=== PATIENT | male | born 1935 | race Caucasian/White ===

== ENCOUNTER 2017-04-04 14:18 | Inpatient (IN) | payer MEDICARE, MEDICAID ==
[2017-04-04] MEDS ORDERED: Aspirin Low Dose CHEW TAB* 81 MG PO ONE (14:48)
[2017-04-04 15:39] LABS: Hematocrit 37 % (42-52); Hemoglobin 12.5 g/dl (14.0-18.0); Mean Corpuscular HGB Conc 34 g/dl (31-36); Mean Corpuscular Hemoglobin 30 pg (27-31); Mean Corpuscular Volume 88 fL (80-94); Mean Platelet Volume 7 um3 (7.4-10.4); Red Blood Count 4.22 10^6/ul (4.0-5.4); Red Cell Distribution Width 15 % (10.5-15); White Blood Count 7.3 10^3/ul (3.5-10.8)
[2017-04-04 15:56] LABS: Albumin 3.7 g/dL (3.2-5.2); BUN/Creatinine Ratio 16.2 (8-20); Calcium 8.9 mg/dL (8.6-10.3); EGFR African American 64.4 (>60); Globulin 3.1 g/dL (2-4); Potassium 4.3 mmol/L (3.5-5.0); Total Bilirubin 0.3 mg/dL (0.2-1.0); Total Protein 6.8 g/dL (6.4-8.9)
[2017-04-04 15:57] LABS: Troponin I 0.01 ng/mL (<0.04)
[2017-04-04 16:38] LABS: TSH (Thyroid Stimulating Horm) 3.25 mcIU/mL (0.34-5.60)
[2017-04-04 16:45] LABS: Free T4 0.79 ng/dL (0.61-1.12)
[2017-04-04] MEDS ORDERED: Acetaminophen TAB* 325 MG PO PRN (16:58)
[2017-04-04] MEDS ORDERED: diPHENhydraMINE IV* 50 MG in NS 0.9% 50 ML* 50 ML IVPB ONE (17:34)
[2017-04-04] MEDS ORDERED: diPHENhydraMINE IV* 50 MG/ML 1 ml VIAL (BENADRYL) ONE (18:01)
[2017-04-04] MEDS ORDERED: Haloperidol INJ IV/IM* 5 MG/ML AMP IV SLOW PU ONE ×2 (20:02)
--- NOTE | 2017-04-04 23:11 | ED ---
Amandeep Mary Alok, scribed for Tye Riley MD on 04/04/17 at 1611 . Palpitations / Dysrhythmia - HPI Summary HPI Summary: 81M presents to the ED for bradycardia. Pt denies dizziness or CP. PMHx includes dementia and HTN. [facility] and was recently taken off his propranolol until yesterday. - History of Current Complaint Chief Complaint: EDDysrhythmPalp Time Seen by Provider: 04/04/17 14:49 Hx Obtained From: Patient, Medical Records Onset/Duration: Lasting Hours, Still Present Timing: Constant Severity Initially: Moderate Severity Currently: Moderate Character: Slow Associated Signs & Symptoms: Negative - Allergy/Home Medications Allergies/Adverse Reactions: Allergies Allergy/AdvReac Type Severity Reaction Status Date / Time No Known Allergies Allergy Verified 08/19/15 14:29 Home Medications: Home Medications Acetaminophen [Acetaminophen Extra Stren] 1,000 mg PO TID PRN 04/04/17 [History Confirmed 04/04/17] Cholecalciferol TAB* [Vitamin D TAB*] 1,000 unit PO DAILY 04/04/17 [History Confirmed 04/04/17] Cholecalciferol [Vitamin D3] 50,000 unit PO MONTHLY 04/04/17 [History Confirmed 04/04/17] Citalopram TAB* [CeleXA TAB*] 10 mg PO QAM 04/04/17 [History Confirmed 04/04/17] Gabapentin CAP(*) [Neurontin 400 mg CAP(*)] 400 mg PO BID 04/04/17 [History Confirmed 04/04/17] Primidone TAB(*) [Mysoline TAB(*)] 100 mg PO 1600 04/04/17 [History Confirmed ] Propranolol TAB* [Inderal TAB*] 40 mg PO BID 04/04/17 [History Confirmed ] PMH/Surg Hx/FS Hx/Imm Hx Cardiovascular History: Reports: Hx Hypertension Infectious Disease History: Unable to Obtain/Confirm Infectious Disease History: Denies: Traveled Outside the [place] in Last 30 Days - Family History Known Family History: Positive: Hypertension - Social History Occupation: Retired Lives: [facility] Alcohol Use: None Hx Substance Use: No Substance Use Type: Reports: None Hx Tobacco Use: No Smoking Status (MU): Never Smoked Tobacco Review of Systems Negative: Fever, Chills Negative: Erythema Negative: Sore Throat Negative: Chest Pain Negative: Shortness Of Breath, Cough Negative: Abdominal Pain, Vomiting, Nausea Negative: dysuria, hematuria Negative: Myalgia, Edema Negative: Rash Neurological: Other - Negative: Dizziness All Other Systems Reviewed And Are Negative: Yes Physical Exam - Summary Physical Exam Summary: Constitutional: Well-developed, Well-nourished, Alert. (-) Distressed Skin: Warm, Dry HENT: Normocephalic; Atraumatic Eyes: Conjunctiva normal Neck: Musculoskeletal ROM normal neck. (-) JVD, (-) Stridor, (-) Tracheal deviation Cardio: Rhythm regular, rate normal, Heart sounds normal; Intact distal pulses; The pedal pulses are 2+ and symmetric. Radial pulses are 2+ and symmetric. (-) Murmur Pulmonary/Chest wall: Effort normal. (-) Respiratory distress, (-) Wheezes, (-) Rales Abd: Soft, (-) Tenderness, (-) Distension, (-) Guarding, (-) Rebound Musculoskeletal: (-) Edema Lymph: (-) Cervical adenopathy Neuro: Alert, Oriented x3 Psych: Mood and affect Normal Triage Information Reviewed: Yes Vital Signs On Initial Exam: Initial Vitals Temp Pulse Resp BP Pulse Ox 98.3 F 37 14 153/55 97 04/04/17 14:39 04/04/17 14:39 04/04/17 14:39 04/04/17 14:39 04/04/17 14:39 Vital Signs Reviewed: Yes Completion Of Physical Exam Limited Due To: Dementia Diagnostics - Vital Signs Vital Signs Temp Pulse Resp BP Pulse Ox 04/04/17 14:39 98.3 F 37 14 153/55 97 - Laboratory Lab Results: Lab Results 04/04/17 04/04/17 Range/Units 15:30 15:30 WBC 7.3 (3.5-10.8) 10^3/ul RBC 4.22 (4.0-5.4) 10^6/ul Hgb 12.5 L (14.0-18.0) g/dl Hct 37 L (42-52) % MCV 88 (80-94) fL MCH 30 (27-31) pg MCHC 34 (31-36) g/dl RDW 15 (10.5-15) % Plt Count 197 (150-450) 10^3/ul MPV 7 L (7.4-10.4) um3 Neut % (Auto) 57.8 (38-83) % Lymph % (Auto) 20.9 L (25-47) % [place] % (Auto) 10.9 H (1-9) % Eos % (Auto) 9.1 H (0-6) % Baso % (Auto) 1.3 (0-2) % Absolute Neuts (auto) 4.2 (1.5-7.7) 10^3/ul Absolute Lymphs (auto) 1.5 (1.0-4.8) 10^3/ul Absolute Monos (auto) 0.8 (0-0.8) 10^3/ul Absolute Eos (auto) 0.7 H (0-0.6) 10^3/ul Absolute Basos (auto) 0.1 (0-0.2) 10^3/ul Absolute Nucleated RBC 0 10^3/ul Nucleated RBC % 0 Sodium 135 (133-145) mmol/L Potassium 4.3 (3.5-5.0) mmol/L Chloride 100 L (101-111) mmol/L Carbon Dioxide 29 (22-32) mmol/L Anion Gap 6 (2-11) mmol/L BUN 22 (6-24) mg/dL Creatinine 1.36 H (0.67-1.17) mg/dL Est GFR ( Amer) 64.4 (>60) Est GFR (Non-Af Amer) 50.0 (>60) BUN/Creatinine Ratio 16.2 (8-20) Glucose 83 (70-100) mg/dL Calcium 8.9 (8.6-10.3) mg/dL Total Bilirubin 0.30 (0.2-1.0) mg/dL AST 12 L (13-39) U/L ALT 7 (7-52) U/L Alkaline Phosphatase 67 (34-104) U/L Troponin I 0.01 (<0.04) ng/mL Total Protein 6.8 (6.4-8.9) g/dL Albumin 3.7 (3.2-5.2) g/dL Globulin 3.1 (2-4) g/dL Albumin/Globulin Ratio 1.2 (1-3) TSH Pending Free T4 Pending Result Diagrams: 04/04/17 15:30 04/04/17 15:30 Lab Statement: Any lab studies that have been ordered have been reviewed, and results considered in the medical decision making process. - EKG 1429 Cardiac Rate: Bradycardia - 38 bpm EKG Rhythm: Sinus Bradycardia EKG Interpretation: Ischemic changes Re-Evaluation - Re-Evaluation First Eval Re-Evaluation Time: 17:34 Change: Unchanged Comment: Patient is getting out of bed and non-cooperative. Administering Benadryl for anesthetic properties. Course/Dx - Course Course Of Treatment: Pt presents asymtomatic hx but is demented. EKG shows ishemic changes. Molst form reviewed. Assessment/Plan: Discussed patient care with Dr. Boswell (Emergency Technician) @ [id number] - Made aware of patient potential admit. Recommends hold on propranolol. - Diagnoses Provider Diagnoses: Drug-induced bradycardia, Medication adverse effect, Myocardial ischemia - Physician Notifications Discussed Care Of Patient With: Lisa Escalante - Will admit pt to [facility] Time Discussed With Above Provider: 16:09 Discharge - Discharge Plan Condition: Stable Disposition: ADMITTED TO [facility] documentation as recorded by the Amandeep louise Alok accurately reflects the service I personally performed and the decisions made by me, Tye Riley MD.
[2017-04-04] MEDS: Gabapentin CAP(*) 400 MG PO SCH (23:14)
[2017-04-04] MEDS: Heparin VIAL(*) 5000 UNITS/ML VIAL (FIVE THOUSAND) SUBCUT SCH (23:16)
--- NOTE | 2017-04-04 23:18 | HP ---
CC: Dr. Meenu Antoine, [facility] * HISTORY AND PHYSICAL: DATE OF ADMISSION: 04/04/17 TIME OF EVALUATION: 4:40 p.m. CHIEF COMPLAINT: "I need my clothes." HISTORY OF PRESENT ILLNESS: Mr. Urbano is an 81-year-old male with a past medical history of dementia, hypertension, anxiety who was sent from [facility] to the emergency room for evaluation of bradycardia. Due to his advanced dementia, the patient cannot provide any meaningful history and information is obtained from his records and from conversation with the ED provider, Dr. Riley. Per report, the patient was taken off propranolol in the past due to bradycardia and that this drug was resumed and he developed bradycardia again. Looking at his MAR, it looks like he has been taking this medication twice a day , but on March 31 and , the morning dose of the medication was held. There is no further documentation at this time and I have called [facility] and requested further records. Although the patient denies chest pain, dizziness, or any other symptoms, the ED provider was concerned because his EKG showed bradycardia with T-wave inversions on the lateral leads, V4, V5, and V6, new when compared to his prior EKG from August 2015 and for that reason, the hospitalist service was consulted. The patient is unable to provide anymore history. PAST MEDICAL HISTORY: 1. Dementia. 2. Hypertension. 3. Anxiety. 4. GERD. 5. Essential tremor. 6. CKD stage 3. MEDICATIONS: 1. Acetaminophen 1000 mg p.o. t.i.d. as needed for pain or fever. 2. Cholecalciferol 50,000 units p.o. monthly. 3. Cholecalciferol 1000 units p.o. daily. 4. Citalopram 10 mg p.o. q.a.m. 5. Donepezil 10 mg p.o. at 1600. 6. Gabapentin 400 mg p.o. b.i.d. 7. Losartan 50 mg p.o. q.a.m. 8. Primidone 50 mg p.o. q.a.m. and 100 mg p.o. at 1600. 9. Propranolol 40 mg p.o. b.i.d. ALLERGIES: No known drug allergies. FAMILY HISTORY: I am unable to obtain from the patient. SOCIAL HISTORY: I am unable to obtain from the patient. He resides at [facility]. There is a MOLST form sent from [facility] that the patient is a full code and surrogate decision maker is his daughter, Angelica Carias, phone number is [phone]. REVIEW OF SYSTEMS: I am unable to obtain from the patient due to his dementia. PHYSICAL EXAMINATION GENERAL: The patient is an elderly, pleasantly confused male, sitting up in the ER stretcher, in no acute distress. VITAL SIGNS: Temperature 98.3, heart rate is 45, respiratory rate is 15, oxygen saturation 95% on room air, blood pressure is 159/64. HEENT: Pupils are equal. Moist mucous membranes. CHEST: Breath sounds present bilaterally with no added sounds. CVS: Normal S1, S2. Regular rate and rhythm. Bradycardic. ABDOMEN: Soft. Bowel sounds are present. EXTREMITIES: Skin is dry, but there is no edema. NEUROLOGIC: He is alert, awake, and oriented x1 to self only. Able to move all 4 extremities and able to ambulate in his room. LABORATORY AND IMAGING DATA: CBC showed WBC of 7.3, hemoglobin of 12.5, hematocrit of 37, platelets of 197 with 67% neutrophils. Chemistries showed a sodium of 135, potassium of 4.3, chloride of 100, bicarb of 29, BUN of 22, creatinine of 1.3, glucose 83, calcium 8.9. Lactic acid is minimally elevated at 2.1 (range 0.5 to 2.0). LFTs are normal. Troponin is 0.01. PFTs are normal. EKG done on 04/04/17 at 1429 showed sinus bradycardia at 38 beats per minute with a right bundle branch block and left anterior fascicular block. T-wave inversions from V4 through V6. On his prior EKG in 2014, he already had right bundle and the left anterior fascicular block and he had some ST depressions in V4 through V6, but the T waves were positive. ASSESSMENT AND PLAN: Mr. Urbano is an 81-year-old male with a past medical history of dementia, hypertension, anxiety, gastroesophageal reflux disease, essential tremor, chronic kidney disease stage 3, who was sent from [facility] for evaluation of asymptomatic bradycardia. 1. Bradycardia: The patient is asymptomatic with no dizziness. He has a good blood pressure and seems to be perfusing well and at his baseline mental status. This is likely secondary to propranolol. His medication will be held and he will be monitored on telemetry. 2. Possible EKG ischemic changes: The patient denies chest pain and his troponin is negative at this time. These EKG changes are "new" when compared to prior EKG of 2015. I doubt this patient has an acute coronary syndrome, but we are going to check serial troponins and monitor on telemetry. 3. Dementia: We will continue donepezil and citalopram and continue supportive care. He will be placed on fall precautions, and he will have a safety monitor as needed as I am concerned he may sundown while in the hospital. 4. Code status is full code. 5. DVT prophylaxis: The patient has a score of 3 on the DVT Prophylaxis Risk Assessment Guide and he will be started on subcutaneous heparin. I called [facility] and have requested more records including his history and physical, but I have not received any records so far at this point. TIME SPENT: Approximately 55 minutes were spent with the patient interview, medical records review, physical examination to complete this admission, more than half of this time was spent [id number] with the patient in coordination of care. [id number]/CPS #: [id number] LAKESHA
[2017-04-05] MEDS: Heparin VIAL(*) 5000 UNITS/ML VIAL (FIVE THOUSAND) SUBCUT SCH ×3 (06:09→21:19)
[2017-04-05] MEDS ORDERED: Primidone TAB(*) 50 MG PO SCH ×3 (09:00→16:00)
--- NOTE | 2017-04-05 09:45 | PN ---
Subjective Date of Service: 04/05/17 Interval History: Mr. Urbano is an 81 yo gentleman who presented to the ED on 04/04 from [facility] with concern for symptomatic bradycardia. Per Cecilia, one of the nurses at [facility], Mr. Urbano is independent with ADLs at baseline and ambulatory. He does have dementia and exhibits confusion, however, he is able to make his needs known and interacts with the other residents with activities like playing cards. Per [facility] staff development educator, Cecilia, the patient was previously started on propranalol a few months ago for severe tremors, which he previously tolerated well. Due to a computer error, the medication fell off the DEC and was restarted on 03/24 once staff realized it had fallen off his medication list. Since then, the staff reports intermittent episodes of bradycardia. He has had some doses held due to low HR. On 04/04, "his HR was noted to be in the 70s-80s" so the patient received his morning propranalol. Later that day, Mr. Urbano reported "not feeling well." Cecilia states he was pale, more confused, unsteady and more weak and sent him to the ED. Here, the patient has been agitated and trying to leave. He is currently in the room with a safety monitor. Patient does not directly answer questions but states "I'm fine." No verbalized complaints. Telemetry: Sinus bradycardia 40s Family History: Unchanged from Admission Social History: Unchanged from Admission Past Medical History: Unchanged from Admission Objective Active Medications: Acetaminophen (Tylenol Tab*) 650 mg PO Q6H PRN PRN Reason: pain/fever Cholecalciferol (Vitamin D Tab*) 1,000 units PO DAILY [facility] Citalopram Hydrobromide (Celexa Tab*) 10 mg PO QAM [facility] Donepezil HCl (Aricept Tab*) 10 mg PO 1600 [facility] Gabapentin (Neurontin Cap(*)) 400 mg PO BID [facility] Last Admin: 04/04/17 23:14 Dose: 400 mg Heparin Sodium (Porcine) (Heparin Vial(*)) 5,000 units SUBCUT Q8HR [facility] Last Admin: 04/05/17 06:09 Dose: 5,000 units Losartan Potassium (Cozaar Tab*) 50 mg PO QAM [facility] Primidone (Mysoline Tab(*)) 100 mg PO 1600 [facility] Primidone (Mysoline Tab(*)) 50 mg PO QAM [facility] Vital Signs 04/04/17 04/04/17 04/04/17 16:12 16:22 18:10 Temperature Pulse Rate 39 Respiratory 14 15 18 Rate Blood Pressure 175/70 159/64 (mmHg) O2 Sat by Pulse 95 Oximetry 04/04/17 04/04/17 04/05/17 18:50 23:14 00:05 Temperature 98.8 F 97.9 F Pulse Rate 40 37 Respiratory 12 16 16 Rate Blood Pressure 155/67 146/61 (mmHg) O2 Sat by Pulse 95 95 Oximetry 04/05/17 04/05/17 04/05/17 01:14 03:25 07:25 Temperature 97.7 F 97.4 F Pulse Rate 34 38 Respiratory 16 16 16 Rate Blood Pressure 164/50 146/59 (mmHg) O2 Sat by Pulse 95 93 Oximetry Oxygen Devices in Use Now: None Appearance: Elderly male, OOB to chair, NAD Ears/Nose/Mouth/Throat: Mucous Membranes Moist Respiratory: Symmetrical Chest Expansion and Respiratory Effort, Clear to Auscultation Cardiovascular: NL Sounds; No Murmurs; No JVD, RRR Abdominal: NL Sounds; No Tenderness; No Distention Extremities: No Edema Neurological: - - Oriented to self Lines/Tubes/Other Access: Clean, Dry and Intact Peripheral IV Result Diagrams: 04/04/17 15:30 04/04/17 15:30 Additional Lab and Data: Lab Results 04/04/17 04/04/17 Range/Units 15:30 15:30 WBC 7.3 (3.5-10.8) 10^3/ul RBC 4.22 (4.0-5.4) 10^6/ul Hgb 12.5 L (14.0-18.0) g/dl Hct 37 L (42-52) % MCV 88 (80-94) fL MCH 30 (27-31) pg MCHC 34 (31-36) g/dl RDW 15 (10.5-15) % Plt Count 197 (150-450) 10^3/ul MPV 7 L (7.4-10.4) um3 Neut % (Auto) 57.8 (38-83) % Lymph % (Auto) 20.9 L (25-47) % [place] % (Auto) 10.9 H (1-9) % Eos % (Auto) 9.1 H (0-6) % Baso % (Auto) 1.3 (0-2) % Absolute Neuts (auto) 4.2 (1.5-7.7) 10^3/ul Absolute Lymphs (auto) 1.5 (1.0-4.8) 10^3/ul Absolute Monos (auto) 0.8 (0-0.8) 10^3/ul Absolute Eos (auto) 0.7 H (0-0.6) 10^3/ul Absolute Basos (auto) 0.1 (0-0.2) 10^3/ul Absolute Nucleated RBC 0 10^3/ul Nucleated RBC % 0 Sodium 135 (133-145) mmol/L Potassium 4.3 (3.5-5.0) mmol/L Chloride 100 L (101-111) mmol/L Carbon Dioxide 29 (22-32) mmol/L Anion Gap 6 (2-11) mmol/L BUN 22 (6-24) mg/dL Creatinine 1.36 H (0.67-1.17) mg/dL Est GFR ( Amer) 64.4 (>60) Est GFR (Non-Af Amer) 50.0 (>60) BUN/Creatinine Ratio 16.2 (8-20) Glucose 83 (70-100) mg/dL Calcium 8.9 (8.6-10.3) mg/dL Total Bilirubin 0.30 (0.2-1.0) mg/dL AST 12 L (13-39) U/L ALT 7 (7-52) U/L Alkaline Phosphatase 67 (34-104) U/L Troponin I 0.01 (<0.04) ng/mL Total Protein 6.8 (6.4-8.9) g/dL Albumin 3.7 (3.2-5.2) g/dL Globulin 3.1 (2-4) g/dL Albumin/Globulin Ratio 1.2 (1-3) TSH Pending Free T4 Pending Microbiology and Other Data: Microbiology 04/05/17 06:15 Nasal Screen MRSA (PCR)(ISELA) - Final Nasal Mrsa Negative Assess/Plan/Problems-Billing Assessment: Mr. Urbano is an 81 yo male with a PMH of tremors, dementia, HTN, anxiety, GERD, and stage 3 CKD who presented to the ED on 6/20 with concern for symptomatic bradycardia secondary to restarting propranalol. - Patient Problems (1) Bradycardia Code(s): R00.1 - BRADYCARDIA, UNSPECIFIED Comment: Secondary to reinitiation of propranolol for tremors Patient was asymptomatic yesterday but not today HR 30s-40s this AM Continue to monitor (2) Abnormal EKG Code(s): R94.31 - ABNORMAL ELECTROCARDIOGRAM [ECG] [EKG] Comment: Last EKG on record was 2014, so acuity of this is unclear Troponins negative Denies CP or sx concerning of ACS Continue to monitor on telemetry (3) Essential tremor Code(s): G25.0 - ESSENTIAL TREMOR Comment: Discussed in side consult with neurology Increase primidone to 100 mg BID Outpatient neurology follow-up recommended for further eval and tx (4) HTN (hypertension) Code(s): I10 - ESSENTIAL (PRIMARY) HYPERTENSION Comment: SBP 140s Continue losartan. (5) Dementia Code(s): F03.90 - UNSPECIFIED DEMENTIA WITHOUT BEHAVIORAL DISTURBANCE Comment : Continue donepezil. (6) DVT prophylaxis Comment: SQ heparin Status and Disposition: OBV admit. Anticipate dc to [facility] tomorrow.
[2017-04-05] MEDS: Losartan TAB* 25 MG PO SCH (09:59)
[2017-04-05] MEDS: Gabapentin CAP(*) 400 MG PO SCH ×2 (10:00→21:19)
[2017-04-05] MEDS: Cholecalciferol TAB* 1000 UNITS PO SCH (10:00)
[2017-04-05] MEDS: Citalopram TAB* 10 MG PO SCH (10:01)
[2017-04-05] MEDS ORDERED: Donepezil TAB* 5 MG PO SCH (16:00)
[2017-04-06] MEDS: Heparin VIAL(*) 5000 UNITS/ML VIAL (FIVE THOUSAND) SUBCUT SCH (05:14)
--- NOTE | 2017-04-06 05:20 | CONS ---
CC: [facility] Providers; Hospitalist * CARDIOLOGY CONSULTATION: DATE OF CONSULT: 04/05/17 REASON FOR CONSULTATION: Bradycardia. CHIEF COMPLAINT: Total body pain. HISTORY OF PRESENT ILLNESS: Mr. Urbano is an 81-year-old gentleman with significant dementia and therefore, much of the history was provided from [facility] notes. The patient just said he is in a lot of pain and does not really remember why he came in. Notes from [facility] document that the patient has a tremor and had been treated with propranolol in the past. This had been stopped and resumed. The patient became weaker and was noted to be bradycardic and sent in to the ED for evaluation. The patient was found to be bradycardic in the emergency department and was found to have an abnormal EKG with inverted T waves in the lateral leads compared with an EKG of 2015. The patient denied chest pain, but did say he had pain in his legs and then said his arms and all over, again unreliable historian. PAST MEDICAL HISTORY: The patient has a past medical history of a tremor, dementia, hypertension, chronic renal insufficiency stage 3, and reflux. CURRENT MEDICATIONS: Include: 1. Tylenol p.r.n. 2. Vitamin D 1000 units a day. 3. Celexa 10 mg a day. 4. Aricept 10 mg a day. 5. Neurontin 400 mg b.i.d. 6. Subcutaneous heparin. 7. Cozaar 50 mg a day. 8. Primidone tabs 50 mg a day. ALLERGIES: No known drug allergies, but intolerant of BETA-BLOCKERS due to bradycardia. FAMILY HISTORY: Unable to get a family history from the patient. SOCIAL HISTORY: The patient states he used to live in [place]. Based on chart record, he has a daughter, who lives locally. He currently resides at [facility]. REVIEW OF SYSTEMS: Unreliable and also unable to be obtained. PHYSICAL EXAM: The patient is 5 feet 8 inches, weighs 170 pounds with a BMI of 26. Vital Signs: On admission, heart rate 37 to 40, blood pressure 153/55, oxygen saturation 95% to 97%, and he is afebrile. General Appearance: Elderly gentleman, appears well nourished, lying flat, in no acute distress. Psychologically, very vague, clearly has dementia. Neurologically, he also seems hard of hearing, but when he does answer about his past, his speech is articulate, he does not seem to have trouble finding words. He will follow commands and he is walking around the floor without difficulty and with a good gait. Skin: Some shaving scrapes, but warm, dry, and no cyanosis. HEENT: Pupils are equal, round. Mucous membranes moist. Neck: Without thyromegaly or lymphadenopathy appreciated. Respirations: Distant, but clear with no wheezing, rales, or rhonchi. Coronary: S1, S2 regular. Bradycardic. Abdomen: Soft and nontender. Lower Extremities: Were free of edema and warm. DIAGNOSTIC STUDIES/LAB DATA: From 04/04/17, white count 7.3, hemoglobin 12.5, hematocrit 37, platelets 197. Sodium 135, potassium 4.3, chloride 100, bicarb 29, BUN 22, creatinine 1.36, glucose 83. ALT of 7. Troponin 0.01. ESR of 32. Troponin #2 0.01, troponin #3 0.01. TSH of 3.25. Free T4 of 0.79. EKG from 04/05/17 shows sinus bradycardia at 38 beats a minute, QRS axis of -30 with normal AV conduction time. He has a right bundle-branch block and inverted T waves in the precordial leads V3 through V6. When compared with an EKG of 08/21/15, the right bundle-branch block is old and at that time, he had inverted T waves V1 through V4, so the T wave inversions have changed and the bradycardia is new. SUMMARY: Mr. Urbano is an 81-year-old gentleman who presented weak, pale, and bradycardic after initiation of propranolol for tremors. According to the [facility] note, his heart rate was in the 70s to 80s prior to resumption of propranolol. There is no absolute indication for a pacemaker if the propranolol can be held and after discussions with the hospitalist, who talked with [facility], we are going to hold the propranolol for now and try other medications to control the patient's tremor. He is going to follow up with Neurology to look for possible Parkinson's or Parkinson-like syndromes as an outpatient. The T-wave abnormalities are noted, although they could represent ischemia, his normal serial troponins are reassuring. They could also represent a cardiomyopathy or changes related to GI or PARQUETRY LAYER abnormalities. Options for workup would include a non urgent stress test. I would avoid a chemical stress test until the bradycardia is resolved as this could lead to worsening of the bradycardia that would be difficult to reverse. As the patient is a good walker, there would certainly be an option for a treadmill nuclear stress test if he is able to follow commands with his dementia. With the patient's T-wave inversions, it is felt appropriate clinically and taking the patient's dementia and long-term goals into effect, an in or outpatient echo could be considered as well, but again I would not perform testing that would not lead to changes in management. With the patient's dementia, I would not proceed with testing that would not exchange engineer. Although we are not recommending a pacemaker at this point in time, the patient appears to have bradycardia related to medications and has had no syncopal episodes, we can reevaluate based on the patient's clinical course and medication needs. I am happy to follow up with him as an outpatient. [id number]/CPS #: [id number] LAKESHA
--- NOTE | 2017-04-06 08:51 | DCNOTE ---
Subjective Date of Service: 04/06/17 Interval History: Patient seen and examined at bedside. He is very restless and alternates between laying in bed, sitting in the hallway, and wandering through the unit. He denies chest pain, SOB, or any acute complaint. He states, "I've got to get out of here." Patient's condition discussed with daughter. She ultimately wants him to get back home as soon as possible. We discussed the possibility of pursuing a stress test or echo here in the hospital, though I did explain that this may not necessarily result in any changes to management. We also discussed that this could be done as an outpatient, which she would prefer. No other acute concerns. Telemetry: SR 64-70 Family History: Unchanged from Admission Social History: Unchanged from Admission Past Medical History: Unchanged from Admission Objective Active Medications: Acetaminophen (Tylenol Tab*) 650 mg PO Q6H PRN PRN Reason: pain/fever Cholecalciferol (Vitamin D Tab*) 1,000 units PO DAILY [facility] Last Admin: 04/05/17 10:00 Dose: 1,000 units Citalopram Hydrobromide (Celexa Tab*) 10 mg PO QAM [facility] Last Admin: 04/05/17 10:01 Dose: 10 mg Donepezil HCl (Aricept Tab*) 10 mg PO 1600 [facility] Last Admin: 04/05/17 15:49 Dose: 10 mg Gabapentin (Neurontin Cap(*)) 400 mg PO BID [facility] Last Admin: 04/05/17 21:19 Dose: 400 mg Heparin Sodium (Porcine) (Heparin Vial(*)) 5,000 units SUBCUT Q8HR [facility] Last Admin: 04/06/17 05:14 Dose: Not Given Losartan Potassium (Cozaar Tab*) 50 mg PO QAM [facility] Last Admin: 04/05/17 09:59 Dose: 50 mg Primidone (Mysoline Tab(*)) 100 mg PO 1600 [facility] Last Admin: 04/05/17 15:49 Dose: 100 mg Primidone (Mysoline Tab(*)) 100 mg PO QAM [facility] Vital Signs 04/05/17 04/05/17 04/05/17 10:00 10:05 12:00 Temperature Pulse Rate 42 Respiratory 16 16 Rate Blood Pressure (mmHg) O2 Sat by Pulse Oximetry 04/05/17 04/05/17 04/05/17 15:37 19:39 20:00 Temperature 98.4 F 97.2 F Pulse Rate 49 49 Respiratory 18 18 18 Rate Blood Pressure 131/63 155/68 (mmHg) O2 Sat by Pulse 97 96 Oximetry 04/05/17 04/05/17 04/05/17 21:19 23:18 23:38 Temperature 98.2 F Pulse Rate 52 Respiratory 16 14 18 Rate Blood Pressure 177/68 (mmHg) O2 Sat by Pulse 94 Oximetry 04/06/17 02:41 Temperature 98.2 F Pulse Rate 47 Respiratory 18 Rate Blood Pressure 160/62 (mmHg) O2 Sat by Pulse 93 Oximetry Oxygen Devices in Use Now: None Appearance: Elderly male, restless, pleasantly confused, NAD Ears/Nose/Mouth/Throat: Mucous Membranes Moist Neck: NL Appearance and Movements; NL JVP Respiratory: Symmetrical Chest Expansion and Respiratory Effort, Clear to Auscultation Cardiovascular: NL Sounds; No Murmurs; No JVD, RRR Abdominal: NL Sounds; No Tenderness; No Distention Extremities: No Edema Neurological: - - Alert, oriented to self Result Diagrams: 04/04/17 15:30 04/04/17 15:30 Additional Lab and Data: Lab Results 04/04/17 04/04/17 Range/Units 15:30 15:30 WBC 7.3 (3.5-10.8) 10^3/ul RBC 4.22 (4.0-5.4) 10^6/ul Hgb 12.5 L (14.0-18.0) g/dl Hct 37 L (42-52) % MCV 88 (80-94) fL MCH 30 (27-31) pg MCHC 34 (31-36) g/dl RDW 15 (10.5-15) % Plt Count 197 (150-450) 10^3/ul MPV 7 L (7.4-10.4) um3 Neut % (Auto) 57.8 (38-83) % Lymph % (Auto) 20.9 L (25-47) % Riley % (Auto) 10.9 H (1-9) % Eos % (Auto) 9.1 H (0-6) % Baso % (Auto) 1.3 (0-2) % Absolute Neuts (auto) 4.2 (1.5-7.7) 10^3/ul Absolute Lymphs (auto) 1.5 (1.0-4.8) 10^3/ul Absolute Monos (auto) 0.8 (0-0.8) 10^3/ul Absolute Eos (auto) 0.7 H (0-0.6) 10^3/ul Absolute Basos (auto) 0.1 (0-0.2) 10^3/ul Absolute Nucleated RBC 0 10^3/ul Nucleated RBC % 0 Sodium 135 (133-145) mmol/L Potassium 4.3 (3.5-5.0) mmol/L Chloride 100 L (101-111) mmol/L Carbon Dioxide 29 (22-32) mmol/L Anion Gap 6 (2-11) mmol/L BUN 22 (6-24) mg/dL Creatinine 1.36 H (0.67-1.17) mg/dL Est GFR ( Amer) 64.4 (>60) Est GFR (Non-Af Amer) 50.0 (>60) BUN/Creatinine Ratio 16.2 (8-20) Glucose 83 (70-100) mg/dL Calcium 8.9 (8.6-10.3) mg/dL Total Bilirubin 0.30 (0.2-1.0) mg/dL AST 12 L (13-39) U/L ALT 7 (7-52) U/L Alkaline Phosphatase 67 (34-104) U/L Troponin I 0.01 (<0.04) ng/mL Total Protein 6.8 (6.4-8.9) g/dL Albumin 3.7 (3.2-5.2) g/dL Globulin 3.1 (2-4) g/dL Albumin/Globulin Ratio 1.2 (1-3) TSH Pending Free T4 Pending Microbiology and Other Data: Microbiology 04/05/17 06:15 Nasal Screen MRSA (PCR)(ISELA) - Final Nasal Mrsa Negative Assess/Plan/Problems-Billing Assessment: Mr. Urbano is an 81 yo male with a PMH of tremors, dementia, HTN, anxiety, GERD, and stage 3 CKD who presented to the ED on 04/04 with concern for symptomatic bradycardia secondary to restarting propranalol. - Patient Problems (1) Bradycardia Code(s): R00.1 - BRADYCARDIA, UNSPECIFIED Comment: Secondary to reinitiation of propranolol for tremors Resolved, now 60s-70s Outpatient cardiology follow-up (2) Abnormal EKG Code(s): R94.31 - ABNORMAL ELECTROCARDIOGRAM [ECG] [EKG] Comment: T-wave inversions seen in V4, V5, V6 Last EKG on record was 2014, so acuity of this is unclear Troponins negative Denies CP or sx concerning of ACS Daughter declined pursuing echo or stress test, as patient is very unhappy and more confused here. Outpatient cardiology follow-up, family to discuss necessity of ischemic workup at that time. (3) Essential tremor Code(s): G25.0 - ESSENTIAL TREMOR Comment: Question if this is PD Discussed in side consult with neurology Increase primidone to 100 mg BID with cessation of propranalol. Outpatient neurology follow-up recommended for further eval and tx (4) HTN (hypertension) Code(s): I10 - ESSENTIAL (PRIMARY) HYPERTENSION Comment: Borderline control, but suspect some aspect of agitation. Continue losartan. (5) Dementia Code(s): F03.90 - UNSPECIFIED DEMENTIA WITHOUT BEHAVIORAL DISTURBANCE Comment : Continue donepezil. (6) DVT prophylaxis Comment: SQ heparin Status and Disposition: D/c to home.
[2017-04-06] MEDS: Cholecalciferol TAB* 1000 UNITS PO SCH (09:32)
[2017-04-06] MEDS: Losartan TAB* 25 MG PO SCH (09:32)
[2017-04-06] MEDS: Citalopram TAB* 10 MG PO SCH (09:32)
[2017-04-06] MEDS: Gabapentin CAP(*) 400 MG PO SCH (09:32)
--- NOTE | 2017-04-06 11:03 | DS ---
DATE OF ADMISSION: 04/04/2017. DATE OF DISCHARGE: 04/06/2017. PROVIDER: Silver Garcia NP. ATTENDING PHYSICIAN: Dr. Michael Moran* (as dictated by Silver Garcia NP). CONSULTING PHYSICIAN: Dr. Sherrell Walls. PRIMARY CARE PHYSICIAN: Dr. Meenu Antoine at [facility] and Rosy Lyles NP at [facility]. PRIMARY DISCHARGE DIAGNOSES: 1. Bradycardia. 2. EKG changes with T-wave inversions in V4, V5 and V6, unknown chronicity. 3. Essential tremor. SECONDARY DISCHARGE DIAGNOSES: 1. Dementia. 2. Hypertension. 3. Anxiety. 4. GERD. 5. Chronic kidney disease, stage 3. MEDICATIONS AT DISCHARGE: 1. Tylenol 1000 mg t.i.d. prn. 2. Gabapentin 400 mg b.i.d. 3. Primidone 100 mg b.i.d. 4. Donepezil 10 mg daily. 5. Cholecalciferol 1000 units daily and 50,000 units monthly. 6. Losartan 50 mg q.a.m. 7. Citalopram 10 mg q.a.m. The patient should discontinue previously prescribed Propranolol. HOSPITAL COURSE OF STAY: For full details, please refer to the history and physical provided by Dr. Rawls. In summary, Mr. Urbano is an 81-year-old gentleman who was sent over from [facility] for evaluation of bradycardia. Per discussion with one of the nursing staff, Cecilia, the patient had previously been prescribed Propranolol for treatment of essential tremors. The medication somehow accidentally fell off his MAR via the computer system. The patient was noticed to have an increase in tremors and complaints of pain and this was restarted. Since then, the staff reported and documented intermittent episode of bradycardia with some doses being held. The medication was originally restarted on 03/24/2017. On April 04, the patient's heart rate that morning was noted to be in the 70s and 80s by the staff, so he did receive his morning dose of Propranolol. Later that day, Mr. Urbano was reporting "not feeling well." The nursing staff notes that he was pale, more confused, unsteady and more weak and he was sent to the ER. Here in the hospital, the patient has been without complaint. He has been very ambulatory and at times agitated with his new environment. For the most part, he is pretty pleasant, although he did not want to be on the clinical research monitor and frequently took it off. He was noted to be, however, bradycardic overnight and into the following day in the 30s and 40s. His heart rates did eventually trend up and at the time of discharge was noted to be in the 60s and 70s. He has continuously denied any chest pain, although at some point he did report that he had pain all over. His complaints were inconsistent, but again there is concern that he does have visible tremor and perhaps concern for Parkinson's disease with his tremoring and at times hand gripping and mika. I did discuss the patient with neurology here, who referred patient for outpatient Parkinson's evaluation and management, but she did recommend that the patient increase his Primidone. As the patient is markedly bradycardic with Propranolol , this was discontinued and it was agreed that this was not necessary to continue to fully for the treatment of tremors. We did also appreciate a consult from the disk sharpener, Dr. Walls, for the bradycardia as well as new T-wave inversions seen on his EKG. These inverted T - waves are new compared with the EKG from 2015. While these T-waves could representing ischemia, the patient did have a normal serial troponins. They could also represent a cardiomyopathy or changes related to GI or AVIATION ELECTRICAL TECHNICIAN abnormalities. It was felt there were no indications for a pacemaker at this time as the Propranolol can be held. The patient's heart rate has improved and resolved back to normal. The patient could undergo a stress test, either chemical or exercise for further evaluation and ischemic work-up. However, being as the patient is just resolving from his bradycardia, we held off on a chemical stress test and the patient is currently not able to follow directions for an exercise stress test here in the hospital. I did also discuss these findings and recommendations with the patient's daughter, Ms. Angelica Pantoja, who opted to hold off on this testing right now. She would like her father to be out of the hospital as it does increase his agitation, and he is very unhappy here. I did tell her that she would be able to follow-up with a disk sharpener and perhaps discuss the benefits of this in the future and decide if they would like to pursue a stress test and echocardiogram. We also did discuss that these tests may not lead to any changes in his medical management. She is understanding of this and ultimately has said and opted against having any further testing for her father and agrees with an outpatient cardiology follow- up to see if any further testing would be beneficial. At the time of discharge, Mr. Urbano is ambulatory on the unit. He denies any pain. He is very eager to go home. His heart rate is noted on telemetry to be sinus rhythm in the 60s and 70s. CONCERNS AT DISCHARGE: Mr. Urbano should be discharged to [facility] on 04/06/2017 and should follow-up with the facility provider, either Dr. Antoine or Rosy Lyles NP. OUTPATIENT FOLLOW-UP CONCERNS: Mr. Urbano should discontinue his Propranolol. His Primidone has been increased. He needs further evaluation of his tremors and potentially a Parkinsonian work-up which will be done via Neurology. The first available appointment for the patient via [facility] Neu[facility] is on June [address] Dalal. He is to follow-up with Cardiology as well. An appointment has been made for May 02. DIET: Heart-healthy diet. ACTIVITY: As tolerated. CONDITION: Stable. DISPOSITION: To [facility]. TIME SPENT: Time spent on this discharge was approximately 45 minutes. Again, this is only a brief summary of the patient's hospital course of stay. For full details, please refer to the full medical record. If you have any further questions or need further assistance, please feel free to contact me at [phone]. SILVER GARCIA NP CC: Dr. Meenu Antoine, [facility]; Rosy Lyles NP* [id number]/CPS #: [id number] [facility]
[2017-04-06 11:55] VITALS: BP 136/63
[2017-04-06 15:31] LABS: Creatine Kinase 132 U/L (52 - 336)
== END 2017-04-06 12:00 | DRG 310 ==
LOC: ED 14:18 → MEDTELE 16:09 → OBSVTOIN 04-05 09:00
PROVIDERS: ADMIT Internal Medicine; ATTEND Hospitalist
DX: R00.1 Bradycardia, unspecified (principal); F03.90 Unspecified dementia, unspecified severity, without behavioral disturbance, psychotic disturbance, mood disturbance, and anxiety; N18.3 Chronic kidney disease, stage 3 (moderate); G25.0 Essential tremor; F41.9 Anxiety disorder, unspecified; K21.9 Gastro-esophageal reflux disease without esophagitis; I12.9 Hypertensive chronic kidney disease with stage 1 through stage 4 chronic kidney disease, or unspecified chronic kidney disease; T44.7X5A Adverse effect of beta-adrenoreceptor antagonists, initial encounter; R94.31 Abnormal electrocardiogram [ECG] [EKG]
CPT/HCPCS: 36415; 80053; 82550; 83605; 84439; 84443; 84484; 85025; 85652; 87641; 93005; A9270-GY; G0378; J1200; J1630; J1644

== ENCOUNTER 2018-08-13 02:42 | Emergency (ER) | payer MEDICARE, MEDICAID ==
--- NOTE | 2018-08-13 03:10 | ED ---
Altered Mental Status - HPI Summary HPI Summary: LEVEL 5 CAVEAT: HPI LIMITED DUE TO PT CONDITION, DEMENTIA An 82 y/o M with dementia presents to ED from [facility] for elevated BP onset FINGERNAIL SCULPTURER. Pt was sent here from [facility] because he was hypertensive and more confused than usual. Pt denies pain, HUYNH at bedside. He feels cold. Pt states he does not know where he is or why he is here. Manual blood pressure at bedside was 170/90. - History Of Current Complaint Chief Complaint: EDAltMentalStatus Stated Complaint: HIGH BP/CONFUSION Time Seen by Provider: 08/13/18 03:08 Hx Obtained From: Patient Hx From Patient Unobtainable Due To: Dementia Associated Signs And Symptoms: Negative: Headache - Allergies/Home Medications Allergies/Adverse Reactions: Allergies Allergy/AdvReac Type Severity Reaction Status Date / Time No Known Allergies Allergy Verified 08/19/15 14:29 PMH/Surg Hx/FS Hx/Imm Hx Previously Healthy: No Cardiovascular History: Reports: Hx Hypertension GI History: Reports: Hx Gastroesophageal Reflux Disease History: Reports: Other Problems/Disorders - Chronic kidney disease stage 3 Sensory History: Denies: Hx Contacts or Glasses, Hx Hearing Aid Opthamlomology History: Denies: Hx Contacts or Glasses Neurological History: Reports: Hx Dementia, Other Neuro Impairments/Disorders - essential tremor Psychiatric History: Reports: Hx Anxiety Infectious Disease History: No Infectious Disease History: Denies: Traveled Outside the [place] in Last 30 Days - Family History Known Family History: Positive: Hypertension - Social History Occupation: Retired Lives: [facility] Alcohol Use: None Hx Substance Use: No Substance Use Type: Reports: None Hx Tobacco Use: No Smoking Status (MU): Never Smoked Tobacco Review of Systems - ROS Summary Review of Systems Summary: LEVEL 5 CAVEAT: ROS LIMITED DUE TO PT CONDITION: DEMENTIA Pt denies pain at bedside. Positive: Other - elevated BP Negative: Headache All Other Systems Reviewed And Are Negative: No Physical Exam - Summary Physical Exam Summary: Appearance: Well appearing, no pain distress, pleasant Skin: warm, dry, reflects adequate perfusion Head/face: normal Eyes: EOMI, YOLY ENT: mucous membranes moist Neck: supple, non-tender Respiratory: CTA, breath sounds present Cardiovascular: mildly jerica, pulses symmetrical Abdomen: non-tender, soft Bowel Sounds: present Musculoskeletal: normal, strength/ROM intact; Parkinson tremor in both hands Neuro: normal, sensory motor intact, A&Ox2 - person and place Triage Information Reviewed: Yes Vital Signs On Initial Exam: Initial Vitals Pulse Resp BP Pulse Ox 47 22 166/81 94 08/13/18 02:42 08/13/18 02:42 08/13/18 02:42 08/13/18 02:42 Vital Signs Reviewed: Yes Diagnostics - Vital Signs Vital Signs Temp Pulse Resp BP Pulse Ox 08/13/18 02:54 98.4 F 47 18 166/81 94 08/13/18 02:47 45 19 93 08/13/18 02:42 47 22 166/81 94 - Laboratory Lab Statement: Any lab studies that have been ordered have been reviewed, and results considered in the medical decision making process. Altered Mental Statu Course/Dx - Course Course Of Treatment: Manual blood pressure at bedside was 170/90. he presents from group home with complaint of elevated blood pressure. The patient has no active complaints and is comfortable. Aside from his dementia he is otherwise stable. Oral medication given here and will discharge to follow-up with primary care physician. - Diagnoses Provider Diagnoses: Elevated blood pressure reading, Dementia Discharge - Sign-Out/Discharge Documenting (check all that apply): Patient Departure - DC - Discharge Plan Condition: Improved Disposition: LONGTERM FACILITY Patient Education Materials: Chronic Hypertension (ED) Referrals: Thomas Chaparro MD [Primary Care Provider] - Additional Instructions: Return to [facility]. Call first thing in the morning to have him follow up with his doctor or the facility doctor. Return if worse or other concerns. - Billing Disposition and Condition Condition: IMPROVED Disposition: Group Home Facility - Attestation Statements Document Initiated by Scribe: Yes Documenting Scribe: Loraine Patton Provider For Whom Jeribapryl is Documenting (Include Credential): Dr. Bryon Urbina MD Scribe Attestation: Loraine Mary scribed for Dr. Bryon Urbina MD on 08/13/18 at 0715. Scribe Documentation Reviewed: Yes Provider Attestation: The documentation as recorded by the Loraine louise accurately reflects the service I personally performed and the decisions made by me, Dr. Bryon Urbina MD
[2018-08-13] MEDS ORDERED: amLODIPine TAB* 5 MG PO ONE (03:14)
[2018-08-13] MEDS ORDERED: LORazepam TAB(*) 1 MG PO ONE (03:14)
[2018-08-13 03:37] VITALS: BP 170/90
== END 2018-08-13 03:36 ==
LOC: ED 02:42
DX: I12.9 Hypertensive chronic kidney disease with stage 1 through stage 4 chronic kidney disease, or unspecified chronic kidney disease (principal); N18.3 Chronic kidney disease, stage 3 (moderate); F03.90 Unspecified dementia, unspecified severity, without behavioral disturbance, psychotic disturbance, mood disturbance, and anxiety; F41.9 Anxiety disorder, unspecified; K21.9 Gastro-esophageal reflux disease without esophagitis
CPT/HCPCS: 99283; A9270-GY